=== PATIENT | male | born 1995 | race Caucasian/White ===

== ENCOUNTER 2017-11-05 13:04 | Emergency (ER) | payer OTHER, BC ==
[~2017-11-05] VITALS: Ht 195.5 cm; Wt 88.5 kg
[~2017-11-05 13:04] MED LIST: KEFLEX500 MG PO; MOTRIN400 MG PO; MOTRIN800 MG PO
== END 2017-11-05 15:32 | disposition home or self-care (01) ==
LOC: ED 13:04
DX: S16.1XXA Strain of muscle, fascia and tendon at neck level, initial encounter (principal); S09.90XA Unspecified injury of head, initial encounter; V49.88XA Car occupant (driver) (passenger) injured in other specified transport accidents, initial encounter; Y93.89 Activity, other specified; Y92.413 State road as the place of occurrence of the external cause; Y99.9 Unspecified external cause status